=== PATIENT | female | born 1990 ===

== ENCOUNTER 2018-05-23 11:18 | Emergency (ER) | payer BC, MEDICAID ==
[2018-05-23 11:19] VITALS: BMI 23.1
[2018-05-23 11:26] VITALS: O2SAT 100
[2018-05-23] MEDS ORDERED: Sodium Chloride 0.9% 1,000 ML IV ONE (11:52)
--- NOTE | 2018-05-23 11:53 | C.PDOC ---
History Of Present Illness 25 y/o female, w/o significant PMHx, present to ED with c/o menstrual cramp started early this morning with onset of next menstrual period. Pt. stated that she woke up this morning with pelvic cramp, nausea. Pt admits, similar sx in past, " multiple times". Pt denies fever, chills, recent illness, sore throat, CP, SOB, dyspnea, diaphoresis, palpitation, vaginal irritation, back pain. Ambulate to Ed for evaluation, appears in pain. Time Seen by Provider: 05/23/18 11:37 Chief Complaint (Nursing): Abdominal Pain History Per: Patient Past Medical History Reviewed: Historical Data, Nursing Documentation, Vital Signs Vital Signs: Last Vital Signs Temp 98.4 F 05/23/18 11:25 Pulse 60 05/23/18 11:25 Resp 22 05/23/18 11:25 BP 121/64 05/23/18 11:25 Pulse Ox 100 05/23/18 11:25 - Medical History PMH: Anemia, Anxiety, Asthma, Bronchitis, Depression, Pneumonia Denies: Chronic Kidney Disease - [employer] Procedures INJECT/INFUSE ELECTROLYT (03/03/15) INJECT/INFUSE NEC (03/03/15) Family History: States: Unknown Family Hx - Social History Hx Alcohol Use: No (DENIES) Hx Substance Use: Yes - Immunization History Hx Tetanus Toxoid Vaccination: No Hx Influenza Vaccination: No Hx Pneumococcal Vaccination: No Review Of Systems Except As Marked, All Systems Reviewed And Found Negative. Constitutional: Negative for: Fever, Chills Eyes: Negative for: Vision Change ENT: Negative for: Throat Pain Cardiovascular: Negative for: Chest Pain, Palpitations, Edema, Light Headedness Respiratory: Negative for: Cough, Shortness of Breath Gastrointestinal: Positive for: Nausea, Abdominal Pain. Negative for: Vomiting, Diarrhea Genitourinary: Positive for: Vaginal Bleeding. Negative for: Frequency, Incontinence Musculoskeletal: Negative for: Neck Pain Skin: Negative for: Rash Neurological: Negative for: Altered Mental Status, Headache, Dizziness Physical Exam - Physical Exam Appears: Well, Non-toxic, Other (in pain) Skin: Normal Color, Warm, Dry, No Rash Head: Normacephalic Eye(s): bilateral: PERRL Nose: No Flaring, No Discharge Throat: No Drooling Neck: Trachea Midline, Supple Cardiovascular: Rhythm Regular Respiratory: No Decreased Breath Sounds, No Accessory Muscle Use, No Stridor, No Wheezing Gastrointestinal/Abdominal: Soft, Tenderness (diffuse lower), No Distention, No Guarding, No Rebound Back: No CVA Tenderness Extremity: Normal ROM, No Pedal Edema, No Swelling Extremity: Bilateral: Atraumatic Neurological/Psych: Oriented x3, Normal Speech ED Course And Treatment - Laboratory Results Result Diagrams: 05/23/18 12:02 05/23/18 12:02 Lab Interpretation: No Changes Compared To Prior Results O2 Sat by Pulse Oximetry: 100 Pulse Ox Interpretation: Normal Progress Note: Pt was OBS in ED for 2 hours and reports moderate improvement in sx. On re-evaluation, pt is afebrile, hempodynamicaly stable. Non-toxic. Tolerate Po well in ED. neck: Supple, (-) JVD. Lungs: CTA B/L, BS equal B/L. CVS: (+)S1S2, reg. AbdL benign, (-) guaridng, (-) rebound. back: (-) CVA tenderness. Neuorlogicaly intact. Blood work review and appears without acute abnormalities. Pt has clinical findings c/w menstrual cramps. Pt advised, ref. to f/u with PCU RN in 2-3 days for re-evaluation. return to Ed if any worsening or new changes. Disposition Counseled Patient/Family Regarding: Studies Performed, Diagnosis, Need For Followup, Rx Given - Disposition Referrals: [facility] [Outside] [facility] [Outside] Disposition: HOME/ ROUTINE Disposition Time: 13:26 Condition: STABLE Additional Instructions: Encourage fluids take medication as need Follow up with PMD in 2-3 days for re-evaluation. return if any new changes. Prescriptions: Ketorolac Tromethamine [Toradol] 10 mg PO BID #6 tab Instructions: Menstrual Cramps Forms: [employer] (Kazakh) - Clinical Impression Clinical Impression: Menstrual cramp
[2018-05-23] MEDS ORDERED: Sodium Chloride 0.9% 250 ML IV ONE (12:06)
[2018-05-23 12:13] LABS: BASO # 0.1 K/uL (0.0-0.2); BASO % 0.5 % (0.0-2.0); EOS # 0.2 K/uL (0.0-0.7); EOS % 1.8 % (0.0-4.0); HEMOGLOBIN 12.1 g/dL (11.0-16.0); LYMPH # 0.8 K/uL (1.0-4.3); LYMPH % 7.2 % (20.0-40.0); MEAN CELL VOLUME 96.8 fL (81.0-99.0); MEAN CORPUSCULAR HEMOGLOBIN 33.5 pg (27.0-31.0); MEAN CORPUSCULAR HGB CONC 34.6 g/dL (33.0-37.0); MEAN PLATELET VOLUME 9.9 fL (7.2-11.7); MONO # 0.5 K/uL (0.0-0.8); MONO % 4.5 % (0.0-10.0); NEUT # 10.1 K/uL (1.8-7.0); PLATELET COUNT 227 K/uL (130-400); RBC 3.61 Mil/uL (3.80-5.20); RED CELL DISTRIBUTION WIDTH 13.7 % (11.5-14.5); WHITE BLOOD COUNT 11.7 K/uL (4.8-10.8)
[2018-05-23 12:26] LABS: ALB/GLOB RATIO 1.8 (1.0-2.1); ALBUMIN 4.4 g/dL (3.5-5.0); ALT/SGPT 22 U/L (9-52); AST/SGOT 24 U/L (14-36); BLOOD UREA NITROGEN 8 mg/dL (7-17); CALCIUM 9.3 mg/dl (8.6-10.4); GFR NON-AFRICAN AMERICAN > 60
[2018-05-23 12:52] LABS: BANDS 2 % (0-2); EOSINOPHIL 3 % (0-4); LYMPHOCYTE 5 % (20-40); MONOCYTE 4 % (0-10); NEUTROPHIL 86 % (50-75); PLATELET ESTIMATE NORMAL (NORMAL); TOTAL CELLS COUNTED 100
[2018-05-23 13:04] LABS: HCG,QUALITATIVE URINE NEGATIVE (NEGATIVE); SQUAMOUS EPITHIAL 2 /hpf (0-5); URINE BACTERIA RARE (<OCC); URINE BILIRUBIN NEGATIVE (NEGATIVE); URINE BLOOD 3+ (NEGATIVE); URINE CLARITY Clear (Clear); URINE COLOR Yellow (YELLOW); URINE GLUCOSE (UA) NORMAL (Normal); URINE PROTEIN NEGATIVE (NEGATIVE); URINE UROBILINOGEN NORMAL mg/dL (0.2-1.0)
[2018-05-23 13:05] LABS: URINE LEUKOCYTE ESTERASE 1+ Leu/uL (Negative)
[2018-05-23 13:28] LABS: BARBITURATES, UR NEGATIVE (NEGATIVE); BENZODIAZEPINES, UR NEGATIVE (NEGATIVE); OPIATES, UR NEGATIVE (NEGATIVE); PHENCYCLIDINE, UR NEGATIVE (NEGATIVE)
[2018-05-23 14:15] VITALS: BP 120/66; PULSE 61; RESP 17; TEMP 98.3
== END 2018-05-23 14:14 | disposition home or self-care (01) ==
LOC: C.ER 11:18
DX: N94.6 Dysmenorrhea, unspecified (principal)
CPT/HCPCS: 80053; 80324; 80345; 80346; 80349; 80353; 80358; 80361; 81001; 83992; 84703; 85025; 96361; 96374; 96375; 99284; J1885; J2405; J7030